=== PATIENT | male | born 1960 | race Caucasian/White ===

== ENCOUNTER 2019-05-22 13:52 | Outpatient (CLI) | payer OTHER | END 2019-05-22 23:59 | disposition home or self-care (01) | LOC: STAR 13:52 | PROVIDERS: ATTEND Neurological Surgery | DX: Z01.810 Encounter for preprocedural cardiovascular examination (principal); Z01.812 Encounter for preprocedural laboratory examination; Z01.811 Encounter for preprocedural respiratory examination; J43.9 Emphysema, unspecified; R79.1 Abnormal coagulation profile; R94.31 Abnormal electrocardiogram [ECG] [EKG]; R82.90 Unspecified abnormal findings in urine | CPT/HCPCS: 36415; 71046; 80048; 81001; 85025; 85610; 85730; 93005 ==

== ENCOUNTER 2019-05-26 06:12 | Inpatient (IN) | payer OTHER ==
[~2019-05-26] VITALS: Ht 177.8 cm; Wt 50.3 kg
[~2019-05-26 06:12] MED LIST: CHOL100011 PO; GABA300C10 PO; MELO15TA24 PO; QUET300T5 PO; SIMV40TA3 PO; ZOLP10TA5 PO
[2019-05-26] MEDS ORDERED: BUPIVACAINE 0.25% ONE (06:33)
[2019-05-26] MEDS ORDERED: VANCOMYCIN 1,000 MG ONE ×2 (06:33→16:49)
[2019-05-26] MEDS ORDERED: FENTANYL PF 100 MCG/2ML ONE ×3 (06:33→11:23)
[2019-05-26] MEDS ORDERED: BUPIVACAINE/EPI 0.5% 1:200K ONE (06:33)
[2019-05-26] MEDS ORDERED: THROMBIN 5,000 UNIT VIAL TP ONE (06:33)
[2019-05-26] MEDS ORDERED: BACITRACIN 50,000 UNIT ONE (06:34)
[2019-05-26] MEDS ORDERED: LACTATED RINGERS 1,000 ML IV SCH (07:05)
[2019-05-26 07:06] VITALS: BP 120/80
[2019-05-26] MEDS ORDERED: ACETAMINOPHEN 500 MG TABLET PO ONE (07:30)
[2019-05-26] MEDS ORDERED: GABAPENTIN 300 MG CAPSULE PO ONE (07:30)
[2019-05-26] MEDS ORDERED: IPRA4AER INH (07:36)
[2019-05-26] MEDS ORDERED: MIDAZOLAM 1 MG/ML, 2ML ONE (07:59)
[2019-05-26] MEDS ORDERED: FENTANYL PF 250 MCG/5ML ONE (07:59)
[2019-05-26] MEDS ORDERED: GLYCOPYRROLATE 0.2MG/1ML, 5ML ONE (08:03)
[2019-05-26] MEDS ORDERED: ROCURONIUM 10MG/ML,5ML ONE (08:03)
[2019-05-26] MEDS ORDERED: CEFAZOLIN 1,000 MG ONE (08:03)
[2019-05-26] MEDS ORDERED: PROPOFOL 10 MG/ML, 20ML ONE (08:03)
[2019-05-26] MEDS ORDERED: NEOSTIGMINE 1 MG/ML, 10ML ONE (08:03)
[2019-05-26] MEDS ORDERED: PROPOFOL 50 ML ONE ×2 (08:08→10:45)
[2019-05-26] MEDS ORDERED: BUPIVACAINE LIPOSOME/PF 10ML INFIL STA (09:17)
[2019-05-26] MEDS ORDERED: MORPHINE SULFATE 4 MG/ML, 1ML IVPush PRN (09:30)
[2019-05-26] MEDS ORDERED: HYDROmorphone 2 MG/ML, 1ML IVPush PRN (09:30)
[2019-05-26] MEDS ORDERED: ONDANSETRON 2MG/ML, 2ML IV PRN (09:30)
[2019-05-26] MEDS ORDERED: PROMETHAZINE 12.5 MG SUPP PR PRN (09:30)
[2019-05-26] MEDS ORDERED: ONDANSETRON ODT 8 MG PO PRN (09:30)
[2019-05-26] MEDS ORDERED: hydrALAzine 20 MG/ML, 1ML IV PRN (09:30)
[2019-05-26] MEDS ORDERED: PROMETHAZINE 25 MG/ML, 1ML IM PRN ×3 (09:30→11:30)
[2019-05-26] MEDS ORDERED: MEPERIDINE/PF 25MG/0.5ML IVPush PRN (09:30)
[2019-05-26] MEDS ORDERED: PROMETHAZINE 25 MG/ML, 1ML IV PRN (09:30)
[2019-05-26] MEDS ORDERED: PROMETHAZINE 25 MG SUPP PR PRN (09:30)
[2019-05-26] MEDS ORDERED: LABETALOL 5MG/ML, 20ML IV PRN (09:30)
[2019-05-26] MEDS ORDERED: OXYcodone 5 MG/5 ML ORAL.SOL UDC PO PRN (09:30)
[2019-05-26] MEDS ORDERED: HYDROmorphone 2 MG/ML, 1ML ONE (11:23)
[2019-05-26] MEDS ORDERED: OXYcodone 5 MG/5 ML ORAL.SOL UDC ONE (11:24)
[2019-05-26] MEDS ORDERED: PHARMACY MAY ADJ FOR RENAL FX MC PRN (11:30)
[2019-05-26] MEDS ORDERED: morphine SULFATE 10 MG/ML, 1ML IVPush PRN (11:30)
[2019-05-26] MEDS ORDERED: METHOCARBAMOL 750 MG TABLET PO PRN (11:30)
[2019-05-26] MEDS ORDERED: DIPHENHYDRAMINE 50 MG/ML, 1ML IVPush PRN (11:30)
[2019-05-26] MEDS ORDERED: BISACODYL 10 MG SUPP PR PRN (11:30)
[2019-05-26] MEDS ORDERED: OXYcodone/APAP 5/325MG TABLET PO PRN (11:30)
[2019-05-26] MEDS ORDERED: ONDANSETRON 2MG/ML, 2ML IVPush PRN (11:30)
[2019-05-26] MEDS ORDERED: MAGNESIUM HYDROXIDE 8%, 30ML UDC PO PRN (11:30)
[2019-05-26] MEDS ORDERED: SENNA/DOCUSATE TABLET PO PRN (11:30)
[2019-05-26] MEDS ORDERED: HYDROcodone/APAP 5/325 TABLET PO PRN (11:30)
[2019-05-26] MEDS ORDERED: CYCLOBENZAPRINE 10 MG TABLET PO PRN (11:30)
[2019-05-26] MEDS ORDERED: MEPERIDINE/PF 25MG/ML,1ML ONE (11:52)
[2019-05-26] MEDS: FENTANYL PF 100 MCG/2ML IV PRN ×2 (12:17→12:24)
[2019-05-26] MEDS ORDERED: hydrALAzine 20 MG/ML, 1ML ONE (12:47)
[2019-05-26] MEDS ORDERED: ONDANSETRON 2MG/ML, 2ML ONE (12:56)
[2019-05-26 14:17] VITALS: BP 149/87
[2019-05-26] MEDS ORDERED: GABAPENTIN 300 MG CAPSULE PO SCH (15:00)
[2019-05-26] MEDS: TEMPLATE NON-FORMULARY MED. (Ipratropium/Albuterol Sulfate (Combivent Respimat Inhal Spray INH SCH ×2 (15:39→19:42)
[2019-05-26 19:21] VITALS: BP 131/82
[2019-05-26] MEDS: GABAPENTIN 300 MG CAPSULE PO SCH (19:40)
[2019-05-26] MEDS: HYDROcodone/APAP 10/325 MG TABLET PO PRN (19:41)
[2019-05-26] MEDS: CEFAZOLIN PMX 1GM/50ML 50 ML IVPB SCH (19:42)
[2019-05-26] MEDS ORDERED: ZOLPIDEM 10MG TABLET PO SCH (21:00)
[2019-05-26] MEDS ORDERED: QUETIAPINE 200 MG TABLET PO SCH (21:00)
[2019-05-26] MEDS ORDERED: SIMVASTATIN 40 MG TABLET PO SCH (21:00)
[2019-05-26] MEDS: SODIUM CHLORIDE FLUSH 10ML SYR IVF SCH (21:00)
[2019-05-26] MEDS: D5%-0.9% NACL+KCL 20MEQ 1,000 ML IV SCH (22:35)
[2019-05-27] MEDS: HYDROcodone/APAP 10/325 MG TABLET PO PRN ×2 (02:36→06:28)
[2019-05-27 02:37] VITALS: BP 137/77
[2019-05-27] MEDS: CEFAZOLIN PMX 1GM/50ML 50 ML IVPB SCH (03:56)
[2019-05-27] MEDS: TEMPLATE NON-FORMULARY MED. (Ipratropium/Albuterol Sulfate (Combivent Respimat Inhal Spray INH SCH ×2 (06:00→10:50)
[2019-05-27] MEDS: SODIUM CHLORIDE FLUSH 10ML SYR IVF SCH (08:58)
[2019-05-27] MEDS: GABAPENTIN 300 MG CAPSULE PO SCH (08:58)
[2019-05-27] MEDS ORDERED: CHOLECALCIFEROL 1,000 UNIT TABLET PO SCH (09:00)
[2019-05-27] MEDS ORDERED: METH750T87 PO (10:06)
[2019-05-27] MEDS ORDERED: HYDR-36 PO (10:06)
[2019-05-27] MEDS ORDERED: CEPH-368 PO (10:07)
[2019-05-27] MEDS: D5%-0.9% NACL+KCL 20MEQ 1,000 ML IV SCH (11:20)
== END 2019-05-27 12:10 | disposition home or self-care (01) | DRG 519 ==
LOC: ORIP 06:12 → EDSTATUS 12:30 → 4NOR 13:29 → DCLOUNGE 05-27 12:05
PROVIDERS: ADMIT Neurological Surgery; ATTEND Neurological Surgery
PROC: 01NB0ZZ Release Lumbar Nerve, Open Approach (ICD-10-PCS; 2019-05-26)
PROC: 01NR0ZZ Release Sacral Nerve, Open Approach (ICD-10-PCS; 2019-05-26)
PROC: 0SB20ZZ Excision of Lumbar Vertebral Disc, Open Approach (ICD-10-PCS; principal; 2019-05-26 09:00)
DX: M48.061 Spinal stenosis, lumbar region without neurogenic claudication (principal); Z68.1 Body mass index [BMI] 19.9 or less, adult; M25.78 Osteophyte, vertebrae; E78.5 Hyperlipidemia, unspecified; J43.9 Emphysema, unspecified; M19.90 Unspecified osteoarthritis, unspecified site; M51.16 Intervertebral disc disorders with radiculopathy, lumbar region; F31.9 Bipolar disorder, unspecified; G43.909 Migraine, unspecified, not intractable, without status migrainosus; F41.9 Anxiety disorder, unspecified; Z87.891 Personal history of nicotine dependence; Z88.6 Allergy status to analgesic agent; Z83.3 Family history of diabetes mellitus; Z82.61 Family history of arthritis; Z82.49 Family history of ischemic heart disease and other diseases of the circulatory system; Z83.6 Family history of other diseases of the respiratory system; R63.6 Underweight
CPT/HCPCS: 72100; G0378; J0690; J2175; J2250; J2405; J2704; J2710; J3010; J3370; J3490; J0360; J2270; J3480; J7120